=== PATIENT | male | born 1960 | race Caucasian/White ===

== ENCOUNTER 2016-08-20 12:35 | Day surgery (SDC) | payer OTHER ==
[~2016-08-20] VITALS: Ht 188 cm; Wt 85.2 kg
[~2016-08-20 12:35] MED LIST: IBUP-1542 PO; METH10TA2 PO
[2016-08-20 13:27] VITALS: Ht 188 cm; Wt 85.2 kg
[2016-08-20] MEDS ORDERED: PROPOFOL 20 ML ONE (14:09)
[2016-08-20] MEDS ORDERED: MIDAZOLAM 1 MG/ML 2 ML INJ ONE (14:09)
[2016-08-20] MEDS ORDERED: LIDOCAINE 2% (SDV) 5 ML INJ ONE (14:09)
[2016-08-20 14:53] VITALS: BP 131/77; PULSE 52; RESP 16
--- NOTE | 2016-08-20 15:19 | GILP ---
DATE OF PROCEDURE: 08/20/2016 PROCEDURE: Colonoscopy to cecum. SURGEON: Enio Gomes MD BRIEF HISTORY AND INDICATIONS: The patient is being evaluated for a history of colon polyps. PREMEDICATION: Monitored anesthesia care by anesthesiologist. INSTRUMENT USED: Olympus colonoscope. PREPARATION: Adequate. TECHNIQUE: After informed consent, with the patient/relatives understanding the procedure, its indic ations potential risks and complications, including but not limited to: allergic reaction, bleeding, perforation, infection, missed lesions and after all pertinent questions were answered to the patie nt's satisfaction, the patient/relatives signed the witnessed informed consent. Following this, premedication was administered slowly IV push by under careful cardiovascular and re spiratory monitoring with pulse oximetry, automatic blood pressure and monitoring and evaluation advisor. Once the sedativ e effect was achieved, the patient was placed in the left lateral decubitus position, digital rectal examination was performed. The colonoscope was then introduced and advanced under visual control th roughout all segments of the colon including: the rectum, sigmoid, descending colon, splenic flexure , transverse colon, hepatic flexure, ascending colon and finally reaching the cecum which was clearl y identified by transillumination, finger indentation and the ileocecal valve. Careful examination o f the mucosa of the lower gastrointestinal tract both on insertion as well as withdrawal of the inst rument disclosed the following findings: Rectal Examination: No evidence of perirectal disease, no masses. Colonic Mucosa: The colonic mucosa is essentially unremarkable with the exception of mild diverticu losis. The ileocecal valve was clearly identified and appears unremarkable. The instrument was withdrawn r eexamining the mucosa in detail. No additional abnormalities are noted with exception of moderate s ized internal hemorrhoids. The instrument was then withdrawn, the patient tolerated the procedure well and was transferred out of the Endoscopy Suite awake and in good condition to continue recovery under observation. IMPRESSION: 1. Mild diverticulosis. 2. Moderate sized internal hemorrhoids. 3. History of colon polyps. PLAN: The patient will follow up as an outpatient. Annual Hemoccult stool testing is recommended. Surveillance colonoscopy in 5 years is recommended. Dictated By: ENIO GOMES MS/CHRISTIANO Conf#: [id number] DID#: [id number] CC: ENIO GOMES;*EndCC*
== END 2016-08-20 15:40 | disposition home or self-care (01) ==
LOC: GIL 12:35
PROVIDERS: ATTEND Internal Medicine Gastroenterology
DX: K57.90 Diverticulosis of intestine, part unspecified, without perforation or abscess without bleeding (principal); K64.8 Other hemorrhoids; Z86.010 Personal history of colon polyps
CPT/HCPCS: 45378; J2250; Z7610